=== PATIENT | male | born 1940 | race Caucasian/White ===

== ENCOUNTER 2016-10-07 16:16 | Emergency (ER) | payer MEDICARE ==
[2016-10-07 16:21] VITALS: TEMP 97.6; BMI 33.5
[2016-10-07] MEDS ORDERED: FUROSEMIDE 40 MG/4 ML VIAL IV ONE (16:49)
--- NOTE | 2016-10-07 16:55 | EDPRACDOC ---
- General Information Chief Complaint: Dyspnea/Resp distress Stated Complaint: arm swelling Information Source: Patient, Family Mode Of Arrival: Car Home Medications: Home Medications Hydrocodone Bit/Acetaminophen [Lorcet 10-650 Tablet] 1 tab PO TID PRN 05/19/14 Losartan Potassium [Cozaar] 100 mg PO HS 05/19/14 Sennosides [Senna] 8.6 mg PO HS 05/19/14 Albuterol Sulfate [Proair Hfa] 2 puff INH Q4-6H PRN 10/07/16 Apixaban [Eliquis] 5 mg PO BID 10/07/16 Cholecalciferol (Vitamin D3) [Vitamin D3 (cholecalciferol)] 5,000 unit PO DAILY 10/07/16 Finasteride [Proscar] 5 mg PO HS 10/07/16 Furosemide [Lasix] 40 mg PO DAILY #10 tablet 10/07/16 Furosemide [Lasix] 40 mg PO MOWEFR 10/07/16 Glimepiride [Amaryl] 4 mg PO BID 10/07/16 Levofloxacin [Levaquin] 750 mg PO DAILY #9 tablet 10/07/16 Lorazepam [Ativan] 0.5 mg PO TID PRN 10/07/16 Allergies/Adverse Reactions: Allergies Allergy/AdvReac Type Severity Reaction Status Date / Time codeine Allergy Nausea/Vomi Verified 10/07/16 16:21 ting - History of Present Illness Onset: 1 week ago HPI: Pt with h/o CVA and CHF, is s/p eliquis use and h/o DVT in left arm following battery replacement procedure of pacer/defib. He was on coumadin at that time. Pt has weakness to left leg moslty, some in left arm. Pt reports he did fall to left side about 10 days ago and skinned his left elbow which is not painful. Normal ROM of left elbow. Without CP, has been getting more swollen in left arm and leg, gained about 10 lbs in his opinion after weighing today. No CP. Some chills, no fever at home, checked his temp recently. Coughed some today and had some clear sputum. Pt went to urgent care and sent to the ED for further evaluation and treatment. Pt is used ot be on 20 mg of lasix daily, now for past 7 months has been on 40 mg three days per week. Shortness of Breath: Moderate Relevant History: Reports: Asthma, Heart Failure (CHF) Cough: Reports: Productive, Clear Rhinorrhea: Reports: None SOB Worsens with: Reports: Exertion, Lying Flat SOB Improves with: Reports: Rest Associated Signs and symptoms: Denies: Fever, Headache, Vomiting, Diarrhea ED Past Medical History - History Reviewed Yes Nurses notes reviewed and agree except as marked - Patient Medical History Neurological History: Reports: Cerebrovascular Accident (LEFT LEG NUMBNESS) Cardiac History: Reports: Atrial Fibrillation, Hypertension, Congestive Heart Failure, Pacemaker Respiratory History: Reports: Asthma. Denies: Pneumonia Musculoskeletal History: Reports: Arthritis, Rheumatoid Arthritis Systemic History: Denies: Cancer Surgical History: Reports: Tonsillectomy/Adnoidectomy - Family Medical History Reports: Hypertension (mother), Cancer (maternal grandfather), Cardiac Disorders (mother). Denies: Diabetes, Stroke - Social Medical History Smoking Status: Never smoker EDM Review of Systems - Review of Systems ROS Negative Except as Marked: Yes All systems reviewed and were negative except as marked Constitutional: Chills, Weight gain. negative: Fever, Weakness Eyes: No Symptoms Reported Throat: No Symptoms Reported Nose: No Symptoms Reported Mouth: No Symptoms Reported Respiratory: Cough, Shortness of Breath, Dyspnea. negative: Barky Cough, Brassy Cough, Wheezing, Pleurisy Cardiovascular: Edema. negative: Chest Pain, Syncope, Skin Mottling Gastrointestinal: negative: Diarrhea, Nausea, Pain, Vomiting Genitourinary: negative: Discharge, Frequency Neurological: Weakness. negative: Dizziness, Speech Difficulty Integumentary: negative: Rash - Physical Exam Constitutional: No apparent distress, Alert, Well nourished, Well appearing. negative: Agitated, Confused, Distress, Restless, Somnolent, Uncooperative, Writhing Oriented to: Time, Person, Place Last recorded Vital Signs: Last Vital Signs Temp 97.6 F 10/07/16 16: Pulse 76 10/07/16 16:33 Resp 18 10/07/16 16:33 BP 150/81 10/07/16 16:33 Pulse Ox 96 10/07/16 16:33 Oxygen Pulse Oxygen Saturation 96 O2 Device Room Air Oxygen Flow Rate Fraction of Inspired Oxygen ( FIO2) - HEENT Head: Normal ( normocephalic) Eye Exam: Normal (PERRL, EOMI, Sclera white) Oropharynx: Normal (Pharynx:Moist without exudate,Gums-no swelling) Nose: No Symptoms Reported (septum midline) Neck: Normal (FROM, trachea at midline) - Respiratory/Cardiovascular Respiratory: negative: Accessory Muscle Use, Diminished, Stridor, Wheezes, Excursion Cardiovascular: Normal. negative: Systolic murmur - GI Palpation: Normal Tenderness: Non tender - Musculoskeletal Extremities: Edema, Pedal Edema, Radial Pulse - Integumentary Skin: Normal - Neurologic Memory Impaired: Normal Motor Function: Abnormal, Other (left arm is 4+/5 strength, left leg is 3/5 strength, near baseline) Cranial Nerve: 12 Mood Description: Normal Thought: Coherent Perception: Normal ED SOB MDM - Differential Diagnosis Differential Diagnosis: Heart Failure, Pnuemonia, Respiratory Insufficiency, Other (CHF, pulmonary edema, cellulitis, DVT, anasarca, renal failure) - Re-evaluation Re-evaluation 1 Re-evaluation Time: 20:09 (CXR suggests possible infiltrate. normal renal fxn and BNP, WBC is up, slight left shift and history of coughing today.cWill cover for pneumonia as well.) - Results Result Diagrams: 10/07/16 17:22 10/07/16 17:22 - EKG EKG #1 EKG Time: 17:00 Rate: bpm: 71 Rhythm: Paced Block: None ST: Normal Comments: abn ECG Decision Time to Discharge: 20:35 - Departure Yes I personally saw and evaluated the patient. Disposition: Home Condition: Stable Final Diagnosis: Pneumonia, Anasarca Instructions: Bacterial Pneumonia (ED), Edema (ED) Education/Counseling Given To: Patient, Family Member Education/Counseling Given Regarding: Diagnosis, Treatment, Prognosis, Follow Up Referrals: None,No Provider [NonStaff] - One Week Prescriptions: Furosemide [Lasix] 40 mg PO DAILY #10 tablet Levofloxacin [Levaquin] 750 mg PO DAILY #9 tablet
[2016-10-07 17:37] LABS: MPV 7.7 fL (7.4-10.4)
[2016-10-07 17:43] LABS: BLOOD UREA NITROGEN 19 MG/DL (9-20); CALC CORRECTED 9.9 MG/DL (8.4-10.2); CALCIUM 9.6 MG/DL (8.4-10.2); CALCULATED OSMOLALITY 258 MOs/Kg (270-290); CHLORIDE 96 mEq/L (98-107); GLUCOSE 161 MG/DL (70-99); SODIUM LEVEL 131 mEq/L (137-146); TOTAL PROTEIN 6.6 G/DL (6.3-8.2)
[2016-10-07 17:46] LABS: AUTOMATED BASOPHIL 1.4 % (0-2); AUTOMATED EOSINOPHIL 0.4 % (0-5); AUTOMATED LYMPH 12.1 % (17-44); AUTOMATED MONOCYTE 8.4 % (3-10); AUTOMATED NEUTROPHIL 77.7 % (45-76)
--- NOTE | 2016-10-07 18:59 | DIRPT ---
CLINICAL DATA: Left lower extremity swelling and edema. Previous DVT. Previous stroke and paralysis. EXAM: LEFT LOWER EXTREMITY VENOUS DOPPLER ULTRASOUND TECHNIQUE: Suarez-scale sonography with graded compression, as well as color Doppler and duplex ultrasound were performed to evaluate the lower extremity deep venous systems from the level of the common femoral vein and including the common femoral, femoral, profunda femoral, popliteal and calf veins including the posterior tibial, peroneal and gastrocnemius veins when visible. The superficial great saphenous vein was also interrogated. Spectral Doppler was utilized to evaluate flow at rest and with distal augmentation maneuvers in the common femoral, femoral and popliteal veins. COMPARISON: None. FINDINGS: Contralateral Common Femoral Vein: Not evaluated by senior games technician. Patient had to urinate multiple times during exam. Common Femoral Vein: No evidence of thrombus. Normal compressibility, respiratory phasicity and response to augmentation. Saphenofemoral Junction: No evidence of thrombus. Normal compressibility and flow on color Doppler imaging. Profunda Femoral Vein: No evidence of thrombus. Normal compressibility and flow on color Doppler imaging. Femoral Vein: No evidence of thrombus. Normal compressibility, respiratory phasicity and response to augmentation. Popliteal Vein: No evidence of thrombus. Normal compressibility, respiratory phasicity and response to augmentation. Calf Veins: No evidence of thrombus. Normal compressibility and flow on color Doppler imaging. Superficial Great Saphenous Vein: No evidence of thrombus. Normal compressibility and flow on color Doppler imaging. Venous Reflux: None. Other Findings: None. IMPRESSION: No evidence of deep venous thrombosis. Electronically Signed By: Paras Quezada M.D. On: 10/07/2016 18:56
--- NOTE | 2016-10-07 19:00 | DIRPT ---
CLINICAL DATA: Left upper extremity pain and swelling EXAM: LEFT UPPER EXTREMITY VENOUS DOPPLER ULTRASOUND TECHNIQUE: Suarez-scale sonography with graded compression, as well as color Doppler and duplex ultrasound were performed to evaluate the upper extremity deep venous system from the level of the subclavian vein and including the jugular, axillary, basilic, radial, ulnar and upper cephalic vein. Spectral Doppler was utilized to evaluate flow at rest and with distal augmentation maneuvers. COMPARISON: None. FINDINGS: Contralateral Subclavian Vein: Respiratory phasicity is normal and symmetric with the symptomatic side. No evidence of thrombus. Normal compressibility. Internal Jugular Vein: No evidence of thrombus. Normal compressibility, respiratory phasicity and response to augmentation. Subclavian Vein: No evidence of thrombus. Normal compressibility, respiratory phasicity and response to augmentation. Axillary Vein: No evidence of thrombus. Normal compressibility, respiratory phasicity and response to augmentation. Cephalic Vein: No evidence of thrombus. Normal compressibility, respiratory phasicity and response to augmentation. Basilic Vein: No evidence of thrombus. Normal compressibility, respiratory phasicity and response to augmentation. Brachial Veins: No evidence of thrombus. Normal compressibility, respiratory phasicity and response to augmentation. Radial Veins: No evidence of thrombus. Normal compressibility, respiratory phasicity and response to augmentation. Ulnar Veins: No evidence of thrombus. Normal compressibility, respiratory phasicity and response to augmentation. Venous Reflux: None visualized. Other Findings: None visualized. IMPRESSION: No evidence of deep venous thrombosis. Electronically Signed By: Vivek Cantu M.D. On: 10/07/2016 18:57
[2016-10-07 19:39] LABS: RBC/URINE 0-2 (0-2); WBC/URINE 0-2 (0-2)
[2016-10-07 19:40] LABS: LEUKOCYTES/URINE NEG (NEGATIVE); NITRITE/URINE NEG (NEGATIVE); URINE OCCULT BLOOD NEG (NEG/TRACE)
--- NOTE | 2016-10-07 19:40 | DIRPT ---
CLINICAL DATA: Shortness of breath EXAM: CHEST 2 VIEW COMPARISON: 06/28/2015 FINDINGS: Pronounced enlargement of the cardiac silhouette unchanged from prior study. Vascular pattern normal. Left lung is clear. Mildly prominent markings in the right lower lobe. Cardiac pacer/ defibrillator stable. No pleural effusion. IMPRESSION: Mildly prominent right lower lobe markings most likely related atelectasis. In the appropriate clinical scenario, the possibility of pneumonia could be considered. Electronically Signed By: Vivek Cantu M.D. On: 10/07/2016 19:37
[2016-10-07] MEDS ORDERED: CEFTRIAXONE 1 GM in D5W 100 ML IV ONE (20:11)
[2016-10-07] MEDS ORDERED: LEVOFLOXACIN 750 MG TAB PO ONE (20:12)
[2016-10-07 20:34] VITALS: BP 160/77; PULSE 75
== END 2016-10-07 20:46 | disposition home or self-care (01) ==
LOC: ED 16:16
DX: J18.9 Pneumonia, unspecified organism (principal); R60.1 Generalized edema
CPT/HCPCS: 36415; 71020; 80053; 81001; 83880; 84484; 85025; 93005; 93971; 96374; 99284; A9270; J1940; J3490